=== PATIENT | female | born 1985 | race African-American/Black ===

== ENCOUNTER → 2019-03-03 14:16 | Observation (INO) ==
[2019-03-03 13:14] LABS: Amphetamine Screen,Urine Negative ng/mL (Cutoff=1000); Barbiturate Screen,Urine Negative ng/mL (Cutoff=200); Benzodiazepines Screen,Urine Negative ng/mL (Cutoff=200); Cannabinoid Screen,Urine Positive ng/mL (Cutoff = 50); Cocaine Screen,Urine Negative ng/mL (Cutoff= 300); Opiate Screen,Urine Negative ng/mL (Cutoff=300); Phencyclidine Screen,Urine Negative ng/mL (Cutoff=25)
--- NOTE | 2019-03-03 14:06 | Discharge Summary ---
Date of Encounter: 03/03/19 Time of Encounter: 14:04 - Discharge Diagnosis (1) 32 weeks gestation of Priority: Primary Status: Acute Comments: Follow up with Dr. Keating as scheduled PTL parameters discussed Discharged home (2) Abdominal pain Priority: Secondary Status: Acute Comments: Patient monitored for about 2 hours with few irregular contractions Reports she is feeling better Advised to hydrate and use warm water in the future to rule out BHC vs. PTL Qualifiers: Abdominal location: lower abdomen, unspecified Qualified Code(s): R10.30 - Lower abdominal pain, unspecified - Discharge Medications Prescriptions: No Action [facility]vs Multi-Dha Softgel DAILY Clotrimazole/Betameth Dip CRM [Lotrisone CRM] 1 appl TP BID #1 tube Vit #108/Iron/FA [ One Tablet] 1 each PO DAILY Ondansetron HCl [Zofran] 4 mg PO BID PRN PRN Reason: Nausea Home Medications: Cvs Multi-Dha Softgel DAILY 07/20/18 [History] Clotrimazole/Betameth Dip CRM [Lotrisone CRM] 1 appl TP BID #1 tube 12/23/18 [Rx] Ondansetron HCl [Zofran] 4 mg PO BID PRN 03/03/19 [History] Vit #108/Iron/FA [ One Tablet] 1 each PO DAILY 03/03/19 [History] Allergies/Adverse Reactions: Allergy/AdvReac Type Severity Reaction Status Date / Time diphenhydramine AdvReac Shakiness Verified 05/30/18 12:30 [From [facility]] Data Procedures and tests throughout hospitalization: Laboratory Tests 03/03/19 12:25 Urine Opiates Screen Negative Ur Barbiturates Screen Negative Ur Phencyclidine Scrn Negative Ur Amphetamines Screen Negative U Benzodiazepines Scrn Negative Urine Cocaine Screen Negative U Marijuana (THC) Screen Positive H Ur Drug Screen Interp See Below Labs on day of discharge: Labs from last 24 hours 03/03/19 12:25 Urine Opiates Screen Negative Ur Barbiturates Screen Negative Ur Phencyclidine Scrn Negative Ur Amphetamines Screen Negative U Benzodiazepines Scrn Negative Urine Cocaine Screen Negative U Marijuana (THC) Screen Positive H Ur Drug Screen Interp See Below Date of admission: 03/03/19 11:58 Primary care physician: PCP NONE Discharging clinician: Katey Pierre Anticipated date of discharge: 03/03/19 - Patient Status Disposition: Home, Self-Care Condition: Good Functional capacity at discharge: independent ambulation Overall status at discharge: patient is progressing back to baseline - Discharge Instructions Follow Up With: NONE,PCP [Primary Care Provider] - Michael Keating MD [Partnered Physician] - - Diet and Activity Activity: increase activity as tolerated Diet: regular diet Hospital Course BODYBUILDER Reason for admission: other Discharge diagnosis: other Hospital course: Ms. Sánchez presented with c/o contractions since this morning. She endorses good fm and denies lof, vb. She was monitored on L&D for a few hours with no palpable or notable contractions on the monitor. She was given PTL precautions and advised to follow up with Dr. Keating as scheduled. Time Attestation: Total time spent providing and/or coordinating discharge services: Time Spent: Less than 30 minutes Exam - Constitutional General appearance IM: A&O X 3 - Respiratory Respiratory exam: Present: CTAB - Cardiovascular Cardiovascular exam IM: Present: RRR, +S1, +S2 - GI/Abdominal GI/Abdominal exam IM: normal bowel sounds, no peritoneal signs - Rectal Rectal exam: deferred - Uterine Tone: Firm - Extremities Exam Extremities exam IM: Present: full ROM, normal capillary refill, normal inspection, radial pulses palpable and symmetrical - Neurological Exam Neurological exam: alert, CN II-XII intact, normal gait, oriented X3, reflexes normal, no focal deficits, strengths equal and symetr throughout - VTE Reasons for not Prescribing Prophylaxis: Treatment not Indicated - Low risk for VTE
== END | disposition home or self-care (01) ==
LOC: 1NENULAB
PROVIDERS: ADMIT Advanced Practice Midwife; ATTEND Advanced Practice Midwife

== ENCOUNTER → 2019-03-18 17:52 | Observation (INO) ==
[2019-03-18 16:24] LABS: Bacteria,Urine None Seen per hpf (None-Few); Bilirubin,Urine Negative (Negative); Blood,Urine Negative (Negative); Clarity,Urine Cloudy (Clear); Color,Urine Yellow (Yellow); Glucose,Urine (UA) Normal (Normal); Hyaline Casts,Urine None Seen per lpf (None-Few); Ketones,Urine Negative (Negative); Leukocyte Esterase,Urine Trace (Negative); Nitrite,Urine Negative (Negative); Protein,Urine 30 mg/dL (Neg-Trace); RBC,Urine 0-3 per hpf (0-3); Specific Gravity,Urine 1.016 (1.010-1.025); Squamous Epithelial Cell,Urine Many per lpf (None-Few); Urobilinogen,Urine Normal (Normal); WBC,Urine 0-3 per hpf (0-3)
[2019-03-18 16:44] LABS: Amphetamine Screen,Urine Negative ng/mL (Cutoff=1000); Barbiturate Screen,Urine Negative ng/mL (Cutoff=200); Benzodiazepines Screen,Urine Negative ng/mL (Cutoff=200); Cannabinoid Screen,Urine Positive ng/mL (Cutoff = 50); Cocaine Screen,Urine Negative ng/mL (Cutoff= 300); Opiate Screen,Urine Negative ng/mL (Cutoff=300); Phencyclidine Screen,Urine Negative ng/mL (Cutoff=25)
[2019-03-18 17:04] LABS: Trichomonas DNA Not Detected (Not Detect)
[2019-03-18 17:05] LABS: Candida DNA DETECTED (Not Detect); Gardnerella DNA DETECTED (Not Detect)
--- NOTE | 2019-03-18 17:44 | OB/GYN Progress Note ---
Date of Encounter: 03/18/19 Time of Encounter: 17:46 - Assessment and Plan (1) 34 weeks gestation of Current Visit: Yes Status: Acute (2) Abdominal cramping affecting Current Visit: Yes Status: Acute No change on serial cervical exams. Oral hydration and encouraged. Discharged home with labor and when to return to triage precautions. Patient verbalizes understanding (3) Encounter for suspected PROM, with rupture of membranes not found Current Visit: Yes Status: Acute Speculum exam shows thick clumpy adherent yellow white discharge with complaint yellow discharge. Negative ferning. Vaginosis shows ceased and BV. Discharged home with prescriptions for Monistat 7 and Flagyl Subjective - Subjective Interval history: 34+4 weeks gestation presents to triage with complaints of lower abdominal cramping and pelvic pressure. Patient started having pelvic cramping and pressure yesterday, has states steady today. Also complains of having wet underwear on multiple recurrences today. Reports good movement, denies vaginal bleeding Antepartum ROS: loss of fluid, movement normal, contractions, no vaginal bleeding Objective - Vital Signs Vital Signs: Intake and Output 03/18/19 03/18/19 03/18/19 07:59 15:59 23:59 Other: Weight 59.3 kg Patient Weight 03/18/19 23:59 Weight 59.3 kg - Exam FHR: auscultation normal FHR comments: Baseline 130 Abdomen: Present: soft, gravid Cervical dilation: Closed/thick/high - Labs Labs: Abnormal lab results Cloudy (Clear) A 03/18/19 15:50 30 mg/dL (Neg-Trace) H 03/18/19 15:50 Ur Leukocyte Esterase Trace (Negative) H 03/18/19 15:50 Ur Squamous Epith Cells Many per lpf (None-Few) H 03/18/19 15:50 Ur Culture Indicated? YES (NO) A 03/18/19 15:50 U Marijuana (THC) Screen Positive ng/mL (Cutoff = 50) H 03/18/19 15:50 Susy species DNA DETECTED (Not Detect) A 03/18/19 15:50 DETECTED (Not Detect) A 03/18/19 15:50
== END | disposition home or self-care (01) ==
LOC: 1NENULAB
PROVIDERS: ADMIT Advanced Practice Midwife; ATTEND Advanced Practice Midwife

== ENCOUNTER → 2019-04-23 17:30 | Observation (INO) ==
[2019-04-23 16:25] LABS: Basophils # 0.1 K/mcL (0.0-0.2); Basophils % 0.3 %; Eosinophils # 0.1 K/mcL (0.0-0.6); Eosinophils % 0.9 %; Hematocrit 36.2 % (35.3-44.9); Hemoglobin 12.8 g/dL (11.5-15.4); Lymphocytes # 2.4 K/mcL (0.6-4.6); Mean Corpuscular HGB Conc 35.4 g/dL (31.6-35.5); Mean Platelet Volume 11.8 fL (9.4-12.4); Monocytes # 1.1 K/mcL (0.0-1.3); Monocytes % 7.4 %; Neutrophils # 11.2 K/mcL (1.6-8.9); Platelet Count 257 K/mcL (140-400); Red Blood Count 3.77 M/mcL (3.82-4.97); Red Cell Distribution Width 12.9 % (11.5-14.5); Segmented Neutrophils % 74.4 %; White Blood Count 15.1 K/mcL (4.3-11.1)
[2019-04-23 16:30] LABS: Amphetamine Screen,Urine Negative ng/mL (Cutoff=1000); Barbiturate Screen,Urine Negative ng/mL (Cutoff=200); Benzodiazepines Screen,Urine Negative ng/mL (Cutoff=200); Cannabinoid Screen,Urine Negative ng/mL (Cutoff = 50); Cocaine Screen,Urine Negative ng/mL (Cutoff= 300); Creatinine,Urine 56 mg/dL; Opiate Screen,Urine Negative ng/mL (Cutoff=300); Phencyclidine Screen,Urine Negative ng/mL (Cutoff=25); Protein/Creatinine Ratio,Urine 0.18 mg/mg (0.00-0.20)
[2019-04-23 16:47] LABS: Alanine Aminotransferase 7 Units/L (7-52); Aspartate Amino Transferase 12 Units/L (13-39); BUN/Creatinine Ratio 14 (6-26); Blood Urea Nitrogen 7 mg/dL (6-20); Lactate Dehydrogenase 121 Units/L (140-271); Uric Acid 3.7 mg/dL (2.3-7.6); eGFR For African Americans > 60 (> 60); eGFR For Non-African Americans > 60 (> 60)
--- NOTE | 2019-04-23 17:17 | OB/GYN History & Physical ---
Date of Encounter: 04/23/19 Time of Encounter: 17:15 Assessment and Plan (1) 39 weeks gestation of Current visit: Yes Status: Acute 33yo at39+4wks GA who presents to L&D from office with concern for PreE v. gHTN 1. R/o PreE v. gHTN - BP normotensive - asymptomatic, denies si/sx of PreE - PreE labs negative, nontachycardic - ruled out for gHTN and PreE - one time BP in office: 140/80 2. MWB - UTD PNC with Dr. Ceballos - denies VB/LOF/contraction(s) - denies n/v/d - VSS, HDS 3. FWB - S = D - active fetus Dispo: DC to home with labor precaution(s). Patient with sinus infection. Ruled out for PreE and gHTN as patient is normotensive consistently. Will f/u with Dr. Ceballos in office next week. MD BIJAL History of Present Illness Chief complaint: Sinus infection, elevated BP HPI: Ms. Sánchez is a 33 year old female at 39+4wks GA who presents for evaluation, patient reports not feeling well. Reports sinus congestion and had an elevated BP in office today with Dr. Keating. Denies si/sx of PreE. BP x 1 was 140/80. NOrmal for patient is SBPs 100-110s. The patient otherwise has had an uncomplicated . Denies n/v/d. Denies VB/LOF. Reports inte rmittent contraction(s). PAtient reports active movement. First . Denies fevers, chills. Vertex presentation per Dr. Keating. Past Med Surg Social Fam HX - Past Medical History Medical history: other Additional medical history: anorexia Psychiatric history: anxiety - Past Surgical History Surgical History: cholecystectomy, other Additional surgical history: right oophrectomy. lymph node removed from right neck - Social History Smoking Status: Current every day smoker Packs per day: 1/2 PPD Smokeless Tobacco Status: No Alcohol use: none Drug use: marijuana - Family History Father Living Status: Still Living Hx Family Respiratory Disorders: Yes (COPD) Obstetrical History - Pregnancies : 1 Para: 0 Term: 0 : 0 Ab's: 0 Livin Medications and Allergies Ondansetron HCl [Zofran] 4 mg PO BID PRN 03/03/19 [History] Vit #108/Iron/FA [ One Tablet] 1 each PO DAILY 03/03/19 [History] Vicks Dayquil Liquicaps 2 tab PO DAILY 04/23/19 [History] Allergy/AdvReac Type Severity Reaction Status Date / Time diphenhydramine AdvReac Shakiness Verified 05/30/18 12:30 [From [facility]] Exam - Constitutional Constitutional: well developed, well nourished, no acute distress, average body habitus - HEENT HEENT: Normocephaly, Mucus Membranes Moist - Lungs Respiratory exam: accessory muscle use - Cardiovascular Cardiovascular exam: RRR - Abdomen Abdomen: Present: bowel sounds normal - Vagina Vagina: Present: normal moisture - Uterus Uterus exam: Present: normal size - Anus/Rectum Anus/Rectum: Present: normal perianal skin Results Result Diagrams: 04/23/19 15:45 04/23/19 15:45 Abnormal lab results WBC 15.1 K/mcL (4.3-11.1) H 04/23/19 15:45 RBC 3.77 M/mcL (3.82-4.97) L 04/23/19 15:45 MCH 34.0 pg (28.0-33.3) H 04/23/19 15:45 11.2 K/mcL (1.6-8.9) H 04/23/19 15:45 0.49 mg/dL (0.60-1.20) L 04/23/19 15:45 AST 12 Units/L (13-39) L 04/23/19 15:45 121 Units/L (140-271) L 04/23/19 15:45 All other labs normal. - VTE Reasons for not Prescribing Prophylaxis: Treatment not Indicated - Low risk for VTE
== END | disposition home or self-care (01) ==
LOC: 1NENULAB
PROVIDERS: ADMIT Registered Nurse; ATTEND Registered Nurse

== ENCOUNTER 2019-04-30 06:57 | Inpatient (IN) ==
[2019-04-30] MEDS ORDERED: Famotidine 20 MG/2 ML VIAL IVP PRN (07:04)
[2019-04-30] MEDS ORDERED: Metoclopramide 10 MG/2 ML VIAL IVP PRN ×3 (07:04→22:17)
[2019-04-30] MEDS ORDERED: Naloxone 0.4 MG/ML INJ IVP PRN (07:04)
[2019-04-30] MEDS ORDERED: miSOPROStol 25 MCG TABLET VG PRN (07:07)
[2019-04-30] MEDS ORDERED: Ringers Solution, Lactated 1,000 ML IVC SCH (07:15)
[2019-04-30] MEDS ORDERED: Methylergonovine 0.2 MG/ML AMPUL IM ONE (07:52)
[2019-04-30 07:57] LABS: Basophils # 0.1 K/mcL (0.0-0.2); Basophils % 0.3 %; Eosinophils # 0.3 K/mcL (0.0-0.6); Eosinophils % 1.7 %; Hematocrit 37.1 % (35.3-44.9); Hemoglobin 12.8 g/dL (11.5-15.4); Immature Granulocytes % 1.5 % (0-4); Lymphocytes % 19.7 %; Mean Corpuscular HGB Conc 34.5 g/dL (31.6-35.5); Mean Corpuscular Volume 98.4 fL (83.0-100.0); Mean Platelet Volume 11.3 fL (9.4-12.4); Monocytes # 1.2 K/mcL (0.0-1.3); Monocytes % 7.7 %; Neutrophils # 10.6 K/mcL (1.6-8.9); Platelet Count 272 K/mcL (140-400); Red Blood Count 3.77 M/mcL (3.82-4.97); Red Cell Distribution Width 13.1 % (11.5-14.5); Segmented Neutrophils % 69.1 %; White Blood Count 15.3 K/mcL (4.3-11.1)
[2019-04-30] MEDS: *HR* Nalbuphine 10 MG/ML AMPUL IVP PRN ×2 (09:05→14:31)
[2019-04-30 09:18] LABS: Amphetamine Screen,Urine Negative ng/mL (Cutoff=1000); Barbiturate Screen,Urine Negative ng/mL (Cutoff=200); Benzodiazepines Screen,Urine Negative ng/mL (Cutoff=200); Cannabinoid Screen,Urine Negative ng/mL (Cutoff = 50); Cocaine Screen,Urine Negative ng/mL (Cutoff= 300); Opiate Screen,Urine Negative ng/mL (Cutoff=300); Phencyclidine Screen,Urine Negative ng/mL (Cutoff=25)
--- NOTE | 2019-04-30 09:20 | OB/GYN History & Physical ---
Date of Encounter: 04/30/19 Time of Encounter: 09:03 Assessment and Plan (1) 40 weeks gestation of Current visit: Yes Status: Acute Admit to inpatient for scheduled IOL of full term (2) Encounter for elective induction of labor Current visit: Yes Status: Acute Vaginal Cytotec given Double cervical braun balloon AROM when appropriate Epidural or IV pain medication when patient desires. (3) Blood type B+ Current visit: Yes Status: Acute (4) NST (non-stress test) reactive Current visit: Yes Status: Acute FHR 140 bpm, moderate variability, +15x15 accels, no decels. History of Present Illness Chief complaint: IOL at 40w4d HPI: Ms. Sánchez is a 33 year old female at 40w4d who presents for scheduled IOL for term . She reports positive movement and denies vaginal bleeding and fluid leakage. She denies any complications during her . Blood type B+ GBS negative HBSAG negative HIV negative RPR negative Hep C Non reative Varicella Immune Rubella Immune Past Med Surg Social Fam HX - Past Medical History Source: patient Medical history: other Additional medical history: anorexia Psychiatric history: anxiety - Past Surgical History Surgical History: cholecystectomy, other Additional surgical history: right oophrectomy. lymph node removed from right neck - Social History Smoking Status: Current every day smoker Smokeless Tobacco Status: No Alcohol use: none Drug use: marijuana Current living situation: Home - Independent Activity Level: Independent ambulation Recent Out of Country Travel Within the Last 8 Weeks: No Exposure or Possible Exposure to Illness During Travel: No - Family History Father Living Status: Still Living Hx Family Respiratory Disorders: Yes (COPD, emphazema) Obstetrical History - Pregnancies : 1 Para: 0 Term: 0 : 0 Ab's: 0 Livin Medications and Allergies Vit #108/Iron/FA [ One Tablet] 1 each PO DAILY 03/03/19 [History] Allergy/AdvReac Type Severity Reaction Status Date / Time diphenhydramine AdvReac Shakiness Verified 05/30/18 12:30 [From Benadryl] Review of System OB All systems PM: reviewed and no additional remarkable complaints except as stated Exam - Constitutional Constitutional: well developed, well nourished, no acute distress, thin - Neck Neck exam: full ROM - Lungs Respiratory exam: CTAB - Cardiovascular Cardiovascular exam: RRR, +S1, +S2 - Abdomen Abdomen: Present: bowel sounds normal, gravid, non tender - Extremities Extremities exam: full ROM, normal capillary refill, normal inspection Deep Tendon Reflex Grade: 2+ Normal - Vulva Vulva: bilateral: normal - Vagina Vagina: Present: normal moisture - Cervix Dilation: 1 Effacement: 50 Station: -3 - Uterus Uterus exam: Present: normal size, normal contour - Anus/Rectum Anus/Rectum: Present: normal perianal skin Results Result Diagrams: 04/30/19 07:35 Abnormal lab results WBC 15.3 K/mcL (4.3-11.1) H 04/30/19 07:35 RBC 3.77 M/mcL (3.82-4.97) L 04/30/19 07:35 MCH 34.0 pg (28.0-33.3) H 04/30/19 07:35 10.6 K/mcL (1.6-8.9) H 04/30/19 07:35 All other labs normal. - VTE Reasons for not Prescribing Prophylaxis: Treatment not Indicated - Low risk for VTE
--- NOTE | 2019-04-30 09:27 | Event Note ---
Date of Encounter: 04/30/19 Time of Encounter: 09:25 Discussed induction plan with patient and she agrees to proceed with braun balloon insertion. Double cervical braun balloon inserted without difficulty, 60mL instilled into uterine balloon, 60mL instilled into vaginal balloon. Patient tolerated without difficulty.
--- NOTE | 2019-04-30 12:23 | Anesthesia Evaluation PreOp ---
Date of Encounter: 04/30/19 Time of Encounter: 12:21 - Past History Planned Operation: zita Cardiac History: Denies any Significant Hx Pulmonary History: Smoker (1/2 ppd), Pack/yr (15) PERFORMANCE MANAGEMENT CONSULTANT History: Denies Any Significant HX Other Medical History: GERD, Other (anorexia) Anesthesia History: No Prior Anesthetic Complications, Past Anesthesia (Marily, Lymp node, Rt ovary cyst) : Yes Test: Positive Alcohol Use: none Drug use: marijuana Medications and Allergies Vit #108/Iron/FA [ One Tablet] 1 each PO DAILY 03/03/19 [History] Allergy/AdvReac Type Severity Reaction Status Date / Time diphenhydramine AdvReac Shakiness Verified 05/30/18 12:30 [From Benadryl] - Meds/Allergy Pre-op Review Medications Reviewed: Yes Allergies Reviewed: Yes Beta Blockers on Current Med List: No Anesthesia Results - Labs 04/30/19 07:35 Anesthesia Exam 105/55 68 16 fht 123 Height: 5'4" Weight: 63K NPO (# of Hours): 5 Pain Scale: 6 Pain Scale Used: Numeric (1 - 10) - HEENT Pupil (Motor): Pupils equal Mallampati: II Teeth: Normal Oral Opening: Greater than 3 - PERFORMANCE MANAGEMENT CONSULTANT LOC: Oriented PERFORMANCE MANAGEMENT CONSULTANT Motor: Normal RUE, Normal LUE, Normal RLE, Normal LLE, Normal Face PERFORMANCE MANAGEMENT CONSULTANT Sensory: Normal: RUE, LUE, RLE, LLE, Face - Cardiac Rhythm: Regular Murmur: None - Pulmonary Breath Sounds: bilateral Clear Respiratory Effort: Symmetrical Anesthesia Assess/Plan ASA Score: 2 Level of consciousness: Cooperative Anesthetic Plan: Spinal, Epidural (risks discuss, questions answered, consented) Autologous Blood: No Monitoring Plan: Standard Monitors Recovery Plan: Other
[2019-04-30] MEDS ORDERED: *HR* FentaNYL (PF) 100 MCG/2 ML VIAL EP ONE (12:25)
[2019-04-30] MEDS ORDERED: Epidural Premix (fent/bupiv) 110 ML EP SCH (12:30)
[2019-04-30] MEDS ORDERED: Oxytocin 20 units/ LR 1000 mL 20 UNIT/1,000 ML BAG IVC SCH ×6 (13:45→22:17)
[2019-04-30] MEDS ORDERED: Fluconazole 100 MG TABLET PO SCH (15:45)
[2019-04-30] MEDS ORDERED: *HR* FentaNYL (PF) 100 MCG/2 ML VIAL ONE ×2 (18:09→19:14)
--- NOTE | 2019-04-30 18:37 | Anesthesia Procedures ---
Date of Encounter: 04/30/19 Time of Encounter: 18:35 Procedures: Anesthesia - Epidural/Spinal Patient ID/Chart reviewed: Yes Patient examined: Yes OB Eval: Gestational age: 41 OB Eval: : 1 OB Eval: Hx Para: 0 OB Eval: Dilated at (cm): 5 OB Eval: Contractions: Non-stressed pattern Consent Obtained: Yes Supplemental Oxygen: None/Room Air Site Prep: Aseptic Technique, Sterile prep and drape, 0.5% Chlorhexidine/Alcohol Patient position: upright Local Anesthetic: Lidocaine 1% Amount of Local Anesthetic used: 3 Touhy Needle Gauge: 18 Touhy Needle Depth (cm): 5 Catheter Depth at Skin (cm): 12 Test Dose (1.5% Lido + Epi): Volume given (mls): 3 Test Dose Result: Negative Loading Dose: Fentanyl (mcg): 100 Loading Dose: Other: ropivacaine 0.2% 5cc Loading Dose Administered: Thru Touhy Needle Infusion Med: 0.125% Bupivacaine w/ 2 mcg/ml Fentanyl Infusion Rate (mls/hr): 15 (pcea 5cc q30") Catheter Secured in Place: Tegaderm Interspace Used: L2-L3 Loss of Resistance (JOSE MANUEL): Yes Blood: No CSF: No Paresthesia: No Procedure: aseptic, tolerated well, VSS, effective Vitals + FHT's: 122/78 88 16 fht 122
[2019-04-30] MEDS ORDERED: Propofol 500 MG/50 ML INFUS..BTL ONE (19:03)
[2019-04-30] MEDS ORDERED: *HR* Oxytocin 10 UNIT/ML VIAL IM ONE (19:08)
[2019-04-30] MEDS ORDERED: *HR* Morphine Sulfate/PF 10 MG/10 ML AMPUL ONE (19:11)
[2019-04-30] MEDS ORDERED: Water for inj. (sterile) 10 ML ONE (19:17)
[2019-04-30] MEDS ORDERED: *HR* Succinylcholine 200 MG/10 ML VIAL IVP ONE (19:23)
[2019-04-30] MEDS ORDERED: Ondansetron 4 MG/2 ML VIAL IVP PRN ×3 (19:28→22:17)
[2019-04-30] MEDS ORDERED: *HR* Meperidine 25 MG/ML SYRINGE IVP PRN (19:28)
[2019-04-30] MEDS ORDERED: Acetaminophen IV 1,000 MG/100 ML INFUS..BTL IVPB ONE (19:28)
[2019-04-30] MEDS ORDERED: Azithromycin 500 MG in D5% in Water 250 ML IVPB ONE (19:37)
[2019-04-30] MEDS ORDERED: Simethicone 80 MG TAB.CHEW PO PRN ×2 (19:43→22:17)
[2019-04-30] MEDS ORDERED: Rho Immune Globulin 1,500 UNIT SYRINGE IM ONE ×2 (19:43→22:17)
[2019-04-30] MEDS ORDERED: Sennosides 8.6 MG TABLET PO PRN ×2 (19:43→22:17)
[2019-04-30] MEDS ORDERED: Ibuprofen 600 MG TABLET PO PRN (19:43)
[2019-04-30] MEDS ORDERED: *HR* OxyCODONE/APAP 5/325 TABLET PO PRN (19:43)
[2019-04-30] MEDS: *HR* HYDROmorphone (PF) 1 MG/ML SYRINGE IVP PRN ×2 (20:20→21:11)
--- NOTE | 2019-04-30 20:20 | OB/GYN Procedure Note ---
Section - Date of procedure: 04/30/19 Preop diagnosis: category 3 FHT tracing Post-op diagnosis: same Procedure: primary low transverse Surgeon: Katey Pereira Blood Loss: 500 Was there an shipping assistant present: No Anesthesia Type: General section complications: none Disposition: PACU Specimens: Placenta - (s) A Infant Delivery Date: 04/30/19 Infant Delivery Time: 19:08 Presentation: vertex Gender: Male Viability: Viable Pounds: 8 Ounces: 2 at 1 minute: 9 at 5 minutes: 9 Shoulder Dystocia: not encountered - Narrative Narrative: OPERATIVE REPORT NAME: VIOLET LANCE : 1985 PRE-OPERATIVE DIAGNOSIS: 1. 39 WEEKS 2. PRIMIGRAVIDA AT TERM 3. PROLAPSED CORD 4. EMERGENT PRIMARY LOW TRANSVERSE DELIVERY POST-OPERATIVE DIAGNOSIS: 1. 39 WEEKS 2. PRIMIGRAVIDA AT TERM 3. PROLAPSED CORD 4. EMERGENT PRIMARY LOW TRANSVERSE DELIVERY EBL: 500ML UOP: OMALLEY WAS NOT PLACED, VAGINAL HAND WAS IN PLACE IVF: 1000ML SPECIMEN: NONE PROCEDURE: EMERGENT LOW TRANSVERSE DELIVERY CONSENT: PROCEEDING AROM, PALPABLE CORD WAS APPRECIATED. STAT PRIMARY DELIVERY WAS CALLED AND PATIENT WAS CONSENTED INTO THE OR. HAND WAS KEPT IN PLACE UNTIL DELIVERY OF . PROCEDURE DETAILS: PATIENT WAS TAKEN TO THE OR, WITH A VAGINAL HAND KEEPING THE HEAD FROM COMPRESSING THE CORD. EPIDURAL ANESTHESIA WAS IN PLACE HOWEVER WAS NOT ADEQUATE FOR A STAT DELIVERY. PATIENT WAS PUT UNDER GENERAL ANESTHESIA. ANESTHESIA CALLED "START" TIME. PFANNENSTIEL SKIN INCISION WAS PERFORMED TO THE LEVEL OF THE UTERUS, BLADDER BLADE WAS IN PLACE AND BLADDER REFLECTION WAS APPRECIATED AFTER ADEQUATE STRETCHING OF THE RECTUS AND PERITONEUM. HYSTEROTOMY WAS PERFORMED, BLUNTLY EXTENDED SUPERIORLY AND INFERIORLY. VAGINAL HAND WAS REMOVED AND THE OCCIPUT WITH PROLAPSED CORD WAS BROUGHT TO THE LEVEL OF THE HYSTEROTOMY AND WITH ADEQUATE FUNDAL PRESSURE, AND THE INFANT WAS DELIVERED. INFANT WAS STUNNED BUT VIGOROUS. CORD WAS CLAMPED AND CUT. INFANT WAS HANDED OFF TO THE WARMER WITH NURSING. ATTENTION WAS THEN TURNED TO THE LEVEL OF THE HYSTEROTOMY. PLACENTA WAS MANUALLY EXPRESSED AND DELIVERED WITH ADEQUATE TRACTION. THE UTERINE CONTENTS WERE EVACUATED. RINGED FORCEPS WERE PLACED AT EITHER ANGLE AND ALONG THE LOWER LIP OF THE HYSTERTOMY. THE HYSTEROTOMY WAS CLOSED USING 0-VICRYL IN THE USUAL RUNNING, LOCKED FASHION. ONE FIGURE OF 8 STITCH WAS PLACED AT THE MIDLINE. HEMOSTASIS WAS APPRECIATED. THE UTERUS WAS THEN PLACED BACK INTO THE ABDOMEN AND EVACUATED BILATERAL GUTTERS. NO ACTIVE BLEEDING VISUALIZED. EVELYN CLAMP WAS TAKEN SUPERIORLY AND INFERIORLY AND NO BLEEDING WAS APPRECIATED ALONG THE FASCIA. WE THEN CLOSED THE FASCIA USING STRATAFIX. HEMOSTASIS WAS APPRECIATED. THE SKIN WAS CLOSED USING 4-0 MONOCRYL SUTURE IN A RUNNING FASHION. HEMOSTASIS WAS APPRECIATED. SOFT COUNT WAS CORRECT. RADIOLOGY WAS CALLED AND AN ABDOMINAL XRAY WAS PERFORMED. NO FOREIGN OBJECTS WERE APPRECIATED IN THE ABDOMEN. CONFIRMING COUNT TO BE CORRECT. I WAS PRESENT FOR THE ENTIRETY OF THE PROCEDURE. MD BIJAL
[2019-04-30] MEDS ORDERED: *HR* HYDROmorphone 20 MG/20 ML PCA IVC PRN (22:17)
[2019-04-30] MEDS ORDERED: Morphine PCA 30 MG/ 30 ML 30 ML PCA.VIAL IVC PRN (22:26)
--- NOTE | 2019-04-30 22:28 | Anesthesia Evaluation Post Op ---
Date of Encounter: 04/30/19 Time of Encounter: 22:27 - Vital Signs Vital Signs: Vital Signs/O2 Sat, Most Current Temp Pulse Resp BP Pulse Ox 97.7 F 78 18 104/72 99 04/30/19 22:24 04/30/19 22:24 04/30/19 22:24 04/30/19 22:24 04/30/19 22:24 - Lungs Lungs: Clear Ascult./Percussion - Airway Airway: Non-obstructed - Cardiovascular Regular Rate - Mental Status Mental Status: Alert & Oriented, Answers Appropriately - Pain Pain Scale: 3 Pain Scale used: Numeric (1 - 10) - Nausea Vomiting Nausea Vomiting: Not Present - Hydration Hydration: NPO, Corado catheter - Discharge PostOp Status: Transfer Patient to floor (no anesthetic complications)
[2019-05-01] MEDS: *HR* Nalbuphine 10 MG/ML AMPUL IV PRN ×2 (00:12→15:14)
[2019-05-01] MEDS ORDERED: Prenatal Vit/FA 1 EACH TABLET PO SCH ×2 (09:00)
[2019-05-01] MEDS ORDERED: Nicotine 21 MG PATCH.TD24 TD SCH (09:00)
[2019-05-01] MEDS: *HR* OxyCODONE/APAP 5/325 TABLET PO PRN ×2 (15:07→21:17)
--- NOTE | 2019-05-01 15:52 | OB/GYN Progress Note ---
Date of Encounter: 05/01/19 Time of Encounter: 15:51 - Assessment and Plan (1) Status post delivery Current Visit: Yes Status: Acute Stable POD #1 Continue current management Subjective - Subjective Interval history: Stable, pain managed on CHEMICAL PROCESSING TECHNICIAN, no flatus, tolerates po. Patient reports: appetite normal, voiding normally, pain well controlled, ambul ating normally [place]: doing well Objective - Vital Signs Latest vital signs: Vital Signs Temp Pulse Resp BP Pulse Ox 05/01/19 15:47 98.5 F 87 16 114/73 05/01/19 11:32 98.5 F 76 16 109/73 05/01/19 08:28 98.1 F 62 16 99/61 05/01/19 03:30 97.6 F 77 14 112/76 98 05/01/19 01:05 97.8 F 77 15 124/75 97 05/01/19 00:00 98.5 F 67 15 102/61 99 04/30/19 23:00 97.9 F 66 14 109/63 97 04/30/19 22:30 98.2 F 73 16 113/70 98 04/30/19 22:24 97.7 F 78 18 104/72 99 04/30/19 22:00 97.7 F 67 14 118/73 96 Intake and Output 04/30/19 05/01/19 05/01/19 23:59 07:59 15:59 Intake Total 120 / 1120 1000 / 1120 Output Total 925 / 925 1025 / 2125 1100 / 2125 Balance -925 / -925 -905 / -1005 -100 / -1005 Intake: Oral 120 / 1120 1000 / 1120 Output: Urine 300 / 1400 1100 / 1400 Estimated Blood Loss 500 / 500 Catheter 425 / 425 725 / 725 Other: Meal Lunch Percent of Meal Consumed 50% Weight 60.7 kg - Exam Lungs: bilateral: normal Chest: Normal S1, Normal S2 Extremities: Present: normal Abdomen: Present: soft Incision: Present: dressed Uterus: Present: firm (U)
[2019-05-01] MEDS: Ibuprofen 600 MG TABLET PO PRN (18:15)
[2019-05-02] MEDS: *HR* OxyCODONE/APAP 5/325 TABLET PO PRN ×2 (06:07→10:08)
[2019-05-02] MEDS: Ibuprofen 600 MG TABLET PO PRN (07:59)
[2019-05-02 08:07] VITALS: BP 102/63
--- NOTE | 2019-05-02 09:49 | Discharge Summary ---
Date of Encounter: 05/02/19 Time of Encounter: 09:45 - Discharge Diagnosis (1) Status post primary low transverse section Priority: Primary Status: Acute Comments: Feeling well Tolerating regular diet Pain well-controlled with by mouth pain meds Ambulating independently Voiding independently Lochia light Passing flatus, no BM yet Vital signs stable Discharge home today - Discharge Medications Prescriptions: New Ibuprofen [Motrin] 600 mg PO Q6HR PRN #30 tablet PRN Reason: Cramping Nicotine Patch [Nicoderm] 21 mg TD DAILY patch.td24 OxyCODONE/APAP 5/325 [Percocet 5/325 MG] 1 each PO Q6HR PRN 5 Days #20 tablet PRN Reason: Moderate pain 4-6 Docusate [Colace] 100 mg PO BID #30 capsule Continued Vit #108/Iron/FA [ One Tablet] 1 each PO DAILY Home Medications: Vit #108/Iron/FA [ One Tablet] 1 each PO DAILY 03/03/19 [History] Docusate [Colace] 100 mg PO BID #30 capsule 05/02/19 [Rx] Ibuprofen [Motrin] 600 mg PO Q6HR PRN #30 tablet 05/02/19 [Rx] Nicotine Patch [Nicoderm] 21 mg TD DAILY patch.td24 05/02/19 [Rx] OxyCODONE/APAP 5/325 [Percocet 5/325 MG] 1 each PO Q6HR PRN 5 Days #20 tablet 05/02/19 [Rx] Allergies/Adverse Reactions: Allergy/AdvReac Type Severity Reaction Status Date / Time diphenhydramine AdvReac Shakiness Verified 05/30/18 12:30 [From Radha] Data Procedures and tests throughout hospitalization: Laboratory Tests 04/30/19 04/30/19 07:35 07:35 WBC 15.3 H RBC 3.77 L Hgb 12.8 Hct 37.1 MCV 98.4 MCH 34.0 H MCHC 34.5 RDW 13.1 Plt Count 272 MPV 11.3 Immature Gran % 1.5 Seg Neutrophils % 69.1 Lymphocytes % 19.7 Monocytes % 7.7 Eosinophils % 1.7 Basophils % 0.3 Neutrophils # 10.6 H Lymphocytes # 3.0 Monocytes # 1.2 Eosinophils # 0.3 Basophils # 0.1 Urine Opiates Screen Negative Ur Buprenorphine Scrn Negative Ur Barbiturates Screen Negative Ur Phencyclidine Scrn Negative Ur Amphetamines Screen Negative U Benzodiazepines Scrn Negative Urine Cocaine Screen Negative U Marijuana (THC) Screen Negative Ur Drug Screen Interp See Below - Impressions ITS Impressions KUB X-Ray 04/30/19 19:19 IMPRESSION: Negative study. D/ / Deirdre Boyd Cha, MD / Deirdre Boyd Cha, MD Interpreting Provider: Deirdre Boyd Cha, MD Date of admission: 04/30/19 06:57 Primary care physician: Mao Villar Jr, CNP Consults: 04/30/19 20:10 Consult to P[facility] [employer] (W&C) [CONS] Routine Reason For Exam: Reason for SW Consult: FOB in group home, marijuana use in Discharging clinician: Katey Pierre Anticipated date of discharge: 05/02/19 - Patient Status Disposition: Home, Self-Care Condition: Good Overall status at discharge: patient is progressing back to baseline - Discharge Instructions Follow Up With: Mao Villar Jr, CNP [Primary Care Provider] - Katey Valle MD [Partnered Physician] - - Diet and Activity Activity: increase activity as tolerated Diet: regular diet Hospital Course Reason for admission: induction of labor, IUP at term Delivery: section Episiotomy: none Laceration: none Other procedures: none complications: none Discharge diagnosis: IUP at term delivered [place] baby: male Time Attestation: Total time spent providing and/or coordinating discharge services: Time Spent: Less than 30 minutes - VTE Reasons for not Prescribing Prophylaxis: Treatment not Indicated - Low risk for VTE Documentation of Mechanical Device: Intermittent pneumatic compression device Exam - Constitutional Vitals: Temp Pulse Resp BP Pulse Ox 97.7 F 76 20 102/63 97 05/02/19 08:06 05/02/19 08:06 05/02/19 08:06 05/02/19 08:06 05/02/19 08:06 General appearance IM: A&O X 3 - Respiratory Respiratory exam: Present: CTAB - Cardiovascular Cardiovascular exam IM: Present: RRR, +S1, +S2 - GI/Abdominal GI/Abdominal exam IM: normal bowel sounds, no peritoneal signs Incision: normal, dry, intact - Rectal Rectal exam: deferred - Uterine Tone: Firm Uterus Position: 2 Fingers Below Umbilicus, Midline - Extremities Exam Extremities exam IM: Present: full ROM, normal capillary refill, normal inspection, radial pulses palpable and symmetrical - Neurological Exam Neurological exam: alert, CN II-XII intact, normal gait, oriented X3, reflexes normal, no focal deficits, strengths equal and symetr throughout - Psychiatric Additional comments: Patient reports history of anxiety. Signs and symptoms of depression and anxiety discussed with patient and she verbalizes understanding of when to seek help.
[2019-05-02 11:07] LABS: Basophils % 0.3 %; Eosinophils # 0.2 K/mcL (0.0-0.6); Hematocrit 28.5 % (35.3-44.9); Immature Granulocytes % 0.7 % (0-4); Lymphocytes # 3.1 K/mcL (0.6-4.6); Lymphocytes % 21.2 %; Mean Corpuscular HGB Conc 34.7 g/dL (31.6-35.5); Mean Corpuscular Hemoglobin 33.9 pg (28.0-33.3); Mean Corpuscular Volume 97.6 fL (83.0-100.0); Monocytes # 1.3 K/mcL (0.0-1.3); Monocytes % 8.7 %; Platelet Count 273 K/mcL (140-400); Red Blood Count 2.92 M/mcL (3.82-4.97); Segmented Neutrophils % 68.1 %; White Blood Count 14.7 K/mcL (4.3-11.1)
[2019-05-02 11:18] LABS: Hemoglobin 9.9 g/dL (11.5-15.4)
== END 2019-05-02 13:06 | disposition home or self-care (01) | DRG 540 ==
LOC: 1NENULAB 06:57 → 1NENUOBS 22:08
PROVIDERS: ADMIT Obstetrics & Gynecology; ATTEND Obstetrics & Gynecology

== ENCOUNTER 2021-03-17 09:42 | Inpatient (IN) ==
[2021-03-17] MEDS ORDERED: Metoclopramide 10 MG/2 ML VIAL IVP ONE (10:06)
[2021-03-17] MEDS ORDERED: CeFAZolin 2,000 MG/50 ML BAG IVPB ONE (10:06)
[2021-03-17] MEDS ORDERED: Famotidine 20 MG/2 ML VIAL IVP ONE (10:06)
[2021-03-17] MEDS ORDERED: Oxytocin 20 units/ LR 1000 mL 20 UNIT/1,000 ML BAG IVC ONE (10:06)
[2021-03-17] MEDS ORDERED: Oxytocin 20 units/ LR 1000 mL 20 UNIT/1,000 ML BAG IVC SCH (10:15)
[2021-03-17 10:49] LABS: Basophils # 0.1 K/mcL (0.0-0.2); Basophils % 0.4 %; Eosinophils # 0.1 K/mcL (0.0-0.6); Eosinophils % 0.8 %; Hematocrit 39.6 % (35.3-44.9); Hemoglobin 13.6 g/dL (11.5-15.4); Immature Platelets 17.3 % (1.1-6.1); Lymphocytes % 25.1 %; Mean Corpuscular HGB Conc 34.3 g/dL (31.6-35.5); Mean Corpuscular Hemoglobin 32.7 pg (28.0-33.3); Mean Corpuscular Volume 95.2 fL (83.0-100.0); Mean Platelet Volume 12.8 fL (9.4-12.4); Monocytes # 0.7 K/mcL (0.0-1.3); Monocytes % 5.7 %; Neutrophils # 7.9 K/mcL (1.6-8.9); Platelet Count 213 K/mcL (140-400); Red Blood Count 4.16 M/mcL (3.82-4.97); White Blood Count 11.9 K/mcL (4.3-11.1)
[2021-03-17 11:08] LABS: Amphetamine Screen,Urine Negative ng/mL (Cutoff=1000); Barbiturate Screen,Urine Negative ng/mL (Cutoff=200); Benzodiazepines Screen,Urine Negative ng/mL (Cutoff=200); Cannabinoid Screen,Urine Positive ng/mL (Cutoff = 50); Cocaine Screen,Urine Negative ng/mL (Cutoff= 300); Opiate Screen,Urine Negative ng/mL (Cutoff=300); Phencyclidine Screen,Urine Negative ng/mL (Cutoff=25)
[2021-03-17] MEDS ORDERED: *HR* Morphine Sulfate/PF 10 MG/10 ML AMPUL ONE (11:24)
[2021-03-17] MEDS ORDERED: *HR* FentaNYL (PF) 100 MCG/2 ML VIAL ONE (11:25)
[2021-03-17] MEDS ORDERED: EPHEDrine 50 MG/ML VIAL ONE (11:26)
[2021-03-17] MEDS ORDERED: Ringers Solution, Lactated 1,000 ML ONE (11:27)
[2021-03-17] MEDS ORDERED: Sennosides 8.6 MG TABLET PO PRN (15:07)
[2021-03-17] MEDS ORDERED: Ringers Solution, Lactated 1,000 ML IVC SCH (15:07)
[2021-03-17] MEDS ORDERED: Simethicone 80 MG TAB.CHEW PO PRN (15:07)
[2021-03-17] MEDS ORDERED: Ondansetron 4 MG/2 ML VIAL IVP PRN (15:07)
[2021-03-17] MEDS ORDERED: Rho Immune Globulin 1,500 UNIT SYRINGE IM ONE (15:07)
[2021-03-17] MEDS ORDERED: Metoclopramide 10 MG/2 ML VIAL IVP PRN (15:07)
[2021-03-17] MEDS: Ibuprofen 600 MG TABLET PO SCH (18:17)
[2021-03-17] MEDS: Acetaminophen 325 MG TABLET PO SCH (18:18)
[2021-03-17] MEDS: Oxytocin 20 units/ LR 1000 mL 20 UNIT/1,000 ML BAG IVC SCH (18:19)
[2021-03-18] MEDS: Ibuprofen 600 MG TABLET PO SCH ×4 (00:05→19:47)
[2021-03-18] MEDS: Acetaminophen 325 MG TABLET PO SCH ×4 (00:06→19:47)
[2021-03-18] MEDS: Oxytocin 20 units/ LR 1000 mL 20 UNIT/1,000 ML BAG IVC SCH (02:07)
[2021-03-18] MEDS: *HR* OxyCODONE Immed Rel 5 MG TABLET PO PRN ×3 (02:15→22:46)
[2021-03-18 05:47] LABS: Basophils % 0.2 %; Eosinophils % 0.1 %; Hematocrit 36.3 % (35.3-44.9); Hemoglobin 12.4 g/dL (11.5-15.4); Immature Granulocytes % 0.5 % (0-4); Lymphocytes % 19.3 %; Mean Corpuscular HGB Conc 34.2 g/dL (31.6-35.5); Mean Corpuscular Hemoglobin 33.2 pg (28.0-33.3); Mean Corpuscular Volume 97.1 fL (83.0-100.0); Mean Platelet Volume 12.7 fL (9.4-12.4); Monocytes % 6.6 %; Neutrophils # 11.4 K/mcL (1.6-8.9); Platelet Count 185 K/mcL (140-400); Red Blood Count 3.74 M/mcL (3.82-4.97); Red Cell Distribution Width 13.2 % (11.5-14.5); Segmented Neutrophils % 73.3 %; White Blood Count 15.6 K/mcL (4.3-11.1)
[2021-03-18] MEDS: Prenatal Vit/FA 1 EACH TABLET PO SCH (07:37)
[2021-03-18] MEDS ORDERED: NON-FORMULARY MEDICATION 1 EACH EACH (Prenatal Vit 108/Iron/Folic Ac [Prenatal One Tablet] PO SCH (09:00)
[2021-03-19] MEDS: Ibuprofen 600 MG TABLET PO SCH (03:30)
[2021-03-19] MEDS: Acetaminophen 325 MG TABLET PO SCH (03:30)
[2021-03-19 07:30] VITALS: BP 117/76
[2021-03-19] MEDS: Prenatal Vit/FA 1 EACH TABLET PO SCH (07:36)
[2021-03-19] MEDS: *HR* OxyCODONE Immed Rel 5 MG TABLET PO PRN (07:36)
== END 2021-03-19 09:45 | disposition home or self-care (01) | DRG 539 ==
LOC: 1NENULAB 09:42 → 1NENUOBS 15:30
PROVIDERS: ADMIT Student in an Organized Health Care Education/Training Program; ATTEND Student in an Organized Health Care Education/Training Program